=== PATIENT | male | born 1965 | race Caucasian/White ===

== ENCOUNTER → 2022-07-14 | Outpatient (CLI) | payer MEDICARE ==
--- NOTE | 2022-07-14 11:23 | CT ---
EXAMINATION TYPE: CT angio chest DATE OF EXAM: 07/14/2022 COMPARISON: None HISTORY: 57-year-old male with a history of thoracic aneurysm. I71.20. TECHNIQUE: Contiguous axial scanning of the chest performed without and with IV Contrast, patient inj ected with 100 mL of Isovue 370. Coronal/sagittal MIP reconstructions performed. 3-D reconstructions generated on a dedicated independent workstation. CT DLP: 936.10 mGycm Automated exposure control for dose reduction was used. FINDINGS: The heart is normal size without pericardial effusion. Aortic root aneurysmal at 4.6 cm. Ascending aorta aneurysmal at 4.5 cm. Bovine configuration to the aortic arch. Borderline ectatic upper descending thoracic aorta at 3.0 cm. Borderline ectatic lower descending thoracic aorta at 2.6 cm. No evidence for acute intramural hematoma or aortic dissection. No thoracic lymphadenopathy by CT size criteria. No evidence for pulmonary embolus. Subtle centrilobular groundglass nodularity throughout the upper and mid lungs. Strandy atelectasis a t the lung bases. Minimal emphysematous change. No hamida consolidation or pleural effusion. Visualized upper abdomen shows an incidental 1.4 cm cyst medial upper pole left kidney. Bones: No osseous destructive process. IMPRESSION: 1. ANEURYSMAL ASCENDING AORTA WITH THE ROOT MEASURING 4.6 CM AND THE ASCENDING AORTA MEASURING 4.5 CM . 2. COPD WEIGHT MINIMAL EMPHYSEMA. 3. CENTRILOBULAR GROUNDGLASS NODULARITY UPPER AND MID LUNGS. DIFFERENTIAL CONSIDERATIONS INCLUDE RESP IRATORY BRONCHIOLITIS, SUBACUTE HYPERSENSITIVITY PNEUMONITIS, AND LESS LIKELY ATYPICAL INFECTIONS. CL INICALLY CORRELATE.
== END | disposition home or self-care (01) ==
LOC: RADCTMAIN 08:51
PROVIDERS: ATTEND Family Medicine
DX: I71.21 Aneurysm of the ascending aorta, without rupture (principal); J43.9 Emphysema, unspecified; R91.8 Other nonspecific abnormal finding of lung field
CPT/HCPCS: 71275; Q9967